=== PATIENT | male | born 1995 | race African-American/Black ===

== ENCOUNTER 2021-11-11 19:30 | Emergency (ER) | payer BC ==
[2021-11-11 19:57] LABS: Bilirubin Neg (Negative); Blood, Urine 25 (Negative); Clarity Cloudy (Clear); Glucose, Urine (Dipstick) Normal (Negative); Ketone, Urine 5 mg/dL (Negative); Leukocyte 500 (Negative); Nitrite Negative (Negative); Protein, Urine (Dipstick) 30 mg/dl (Neg-Trace)
[2021-11-11 20:04] LABS: RBC/HPF 0-3 HPF (0-3); WBC/HPF Greater Than 50 HPF (0-3)
[2021-11-11 20:05] LABS: Bacteria/HPF Rare-Few HPF (None Seen); Squamous Epithelial 0-3 HPF (0-3)
[2021-11-11] MEDS ORDERED: cefTRIAXone\\ROCEPHIN 500 MG VIAL ONE (21:04)
[2021-11-11] MEDS ORDERED: Lidocaine 1% PF 5 ML VIAL ONE (21:05)
[2021-11-16 05:01] LABS: Chlam.trachomatis by PCR,Urine Not Detected (NotDetected)
== END 2021-11-11 20:44 | disposition home or self-care (01) ==
LOC: CSHERS 19:30
DX: N34.1 Nonspecific urethritis (principal); F17.210 Nicotine dependence, cigarettes, uncomplicated
CPT/HCPCS: 81003; 81015; 87086; 87491; 87591; 96372; 99283; J0696